=== PATIENT | female | born 1995 | race Caucasian/White ===

== ENCOUNTER 2017-12-21 23:42 | Emergency (ER) | payer OTHER ==
[2017-12-22] MEDS ORDERED: O ndansetron ODT 4MG 2TAB PRPK 4 MG PAK PO ONE (00:07)
--- NOTE | 2017-12-22 00:07 | ED ---
Head Injury - HPI Summary HPI Summary: 22 presents with head injury today. States she slipped and landed on her posterior head. She states she has a history of concussions from slipping the shower. She denies any neck pain. She denies any other injury. She denies any loss consciousness. She notes nausea but denies any vomiting. She admits to dizziness. She denies any change in vision. She denies any photophobia. She has a difficulties concentrating. She states her headache is Worse. She Took Some Ibuprofen with Minimal Relief. She Denies Any History of Migraines. - History Of Current Complaint Stated Complaint: FALL, HEAD INJURY Time Seen by Provider: 12/21/17 23:57 - Allergies/Home Medications Allergies/Adverse Reactions: Allergies Allergy/AdvReac Type Severity Reaction Status Date / Time No Known Allergies Allergy Verified 05/08/16 00:17 PMH/Surg Hx/FS Hx/Imm Hx Endocrine/Hematology History: Denies: Hx Anticoagulant Therapy Cardiovascular History: Denies: Hx Hypertension - Family History Known Family History: Positive: Unknown - LEVEL 5 CAVEAT - Social History Alcohol Use: Binge use today Hx Substance Use: No Substance Use Type: Reports: None Smoking Status (MU): Unknown if Ever Smoked - LEVEL 5 CAVEAT Review of Systems Negative: Fever Negative: Chest Pain Negative: Shortness Of Breath Positive: Nausea. Negative: Vomiting Positive: Headache All Other Systems Reviewed And Are Negative: Yes Physical Exam Triage Information Reviewed: Yes Vital Signs Reviewed: Yes Appearance: Positive: Well-Appearing Skin: Positive: Warm, Dry Head/Face: Positive: Normal Head/Face Inspection, Other - No step off, raccoon eyes, john sign Eyes: Positive: Normal, EOMI, FLEX, Conjunctiva Clear ENT: Positive: Normal ENT inspection, Pharynx normal, TMs normal Neck: Positive: Other: - nontender neck Respiratory/Lung Sounds: Positive: Clear to Auscultation, Breath Sounds Present Cardiovascular: Positive: Normal, RRR Abdomen Description: Positive: Nontender, Soft Bowel Sounds: Positive: Present Musculoskeletal: Positive: Normal Neurological: Positive: Normal Psychiatric: Positive: Normal Head Injury Course/Dx Course Of Treatment: 22 presents with head injury today. States she slipped and landed on her posterior head. She states she has a history of concussions from slipping the shower. She denies any neck pain. She denies any other injury. She denies any loss consciousness. She notes nausea but denies any vomiting. She admits to dizziness. She denies any change in vision. She denies any photophobia. She has a difficulties concentrating. She states her headache is Worse. She Took Some Ibuprofen with Minimal Relief. She Denies Any History of Migraines. On exam has normal neuro exam. According [facility] rules does not head imaging. Will given nausea medication. We'll have follow-up with primary. Patient understands agrees with plan. - Diagnoses Differential Diagnosis/HQI/PQRI: Concussion Without LOC, Contusion, Intracranial Bleed Provider Diagnoses: Head injury Discharge - Sign-Out/Discharge Documenting (check all that apply): Discharge/Admit/Transfer - Discharge Plan Condition: Good Disposition: HOME Prescriptions: Ondansetron ODT TAB* [Zofran 4 MG Odt TAB*] 4 mg PO Q6H PRN #8 tab.odt PRN Reason: Nausea Patient Education Materials: Head Injury (ED) Forms: *School Release Referrals: No Primary Care Phys,NOPCP [Primary Care Provider] - Additional Instructions: Place ice on area as needed Take Tylenol or ibuprofen for headache every 6 hours Take zofran every 6 hours for nausea Modify activities as tolerated Follow up with primary within 5 days Return to ED if develop persistent vomiting, severe headache, change in behavior , or any new or worsening symptoms - Billing Disposition and Condition Condition: GOOD Disposition: HOME
[2017-12-22 00:18] VITALS: BP 130/74
== END 2017-12-22 00:18 | disposition home or self-care (01) ==
LOC: ED 23:42
DX: S09.90XA Unspecified injury of head, initial encounter (principal); W01.0XXA Fall on same level from slipping, tripping and stumbling without subsequent striking against object, initial encounter; Y92.9 Unspecified place or not applicable; R11.0 Nausea; R51 Headache
CPT/HCPCS: 99281

== ENCOUNTER → 2018-09-17 11:29 | Emergency (ER) | payer OTHER ==
[~2018-09-17 11:29] MED LIST: Acetaminophen TAB* 325 MG ONE; Acetaminophen TAB* 325 MG PO ONE
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
[2018-09-17 16:25] VITALS: BP 128/92
== END | disposition home or self-care (01) ==
LOC: ED 11:29
DX: S06.0X9A Concussion with loss of consciousness of unspecified duration, initial encounter (principal); S09.90XA Unspecified injury of head, initial encounter; R41.3 Other amnesia; V89.2XXA Person injured in unspecified motor-vehicle accident, traffic, initial encounter; Y92.9 Unspecified place or not applicable
CPT/HCPCS: 70450; 72125; 99282; A9270-GY